=== PATIENT | male | born 2000 | race Caucasian/White ===

== ENCOUNTER 2023-05-11 21:38 | Emergency (ER) | payer SELFPAY ==
[~2023-05-11] VITALS: Ht 182.9 cm; Wt 71.3 kg
[2023-05-11] MEDS ORDERED: LIDOCAINE W/EPINEPHRINE 1% 20ML VIAL SC ONE (23:55)
[2023-05-12 01:18] VITALS: BP 128/76; TEMP 97.9; O2SAT 99
== END 2023-05-12 01:21 | disposition home or self-care (01) ==
LOC: M ED 21:38
DX: S01.112A Laceration without foreign body of left eyelid and periocular area, initial encounter (principal); W22.8XXA Striking against or struck by other objects, initial encounter; Y92.009 Unspecified place in unspecified non-institutional (private) residence as the place of occurrence of the external cause; Y93.01 Activity, walking, marching and hiking; Y99.8 Other external cause status